=== PATIENT | female | born 1985 | race Caucasian/White ===

== ENCOUNTER 2016-07-20 16:15 | Emergency (ER) | payer OTHER ==
[~2016-07-20] VITALS: Ht 165.1 cm; Wt 71.5 kg
[2016-07-20 16:18] VITALS: BP 123/75; PULSE 107; RESP 16; TEMP 98.1; O2SAT 98
[2016-07-20] MEDS ORDERED: ONDANSETRON ODT 4 MG TAB PO ONE (16:45)
--- NOTE | 2016-07-20 17:36 | PD ---
HPI Chief Complaint: Abdominal Pain Time Seen by Provider: 16:31 Travel History International Travel<30 days: No Contact w/Intl Traveler<30days: No Traveled to known affect area: No History of Present Illness HPI 30-year-old female presents with multiple episodes of nonbloody emesis and diarrhea with intermittent abdominal cramping. Location is [place]. She states her symptoms all started this morning. She states her child had a recent cold. She denies other complaints. She states she feels worse when she moves around. She denies other modifying factors. She states she is having more diarrhea than vomiting. Duration is couple hours. PFSH Past Medical History Medical History: Denies Significant Hx Diminished Hearing: No Tetanus Vaccination: Unknown Influenza Vaccination: No ?: Not LMP: 07/01/16 Past Surgical History Other Surgery: Yes Social History Alcohol Use: No Tobacco Use: No Substance Use: No Allergies-Medications (Allergen,Severity, Reaction): Coded Allergies: No Known Allergies (Unverified , 07/20/16) Reported Meds & Prescriptions Reported Meds & Active Scripts Active Bentyl (Dicyclomine HCl) 10 Mg Cap 10 Mg PO TID PRN Zofran Odt (Ondansetron Odt) 4 Mg Tab 4 Mg SL Q6HR PRN Review of Systems Except as stated in HPI: all other systems reviewed are Neg Physical Exam Narrative GENERAL: Well-nourished, well-developed patient. SKIN: Warm and dry. HEAD: Normocephalic and atraumatic. EYES: No injection or drainage. ENT: No nasal drainage noted. NECK: Supple, trachea midline. CARDIOVASCULAR: Regular rate and rhythm RESPIRATORY: No increased effort. No accessory muscle use. GASTROINTESTINAL: Abdomen soft, mild periumbilical tenderness with deep palpation, nondistended. No rebound EXTREMITIES: No edema. BACK: Nontender without obvious deformity. NEUROLOGICAL: Awake and alert. Motor and sensory grossly within normal limits. Normal speech. Data Data Last Documented VS Vital Signs Date Time Temp Pulse Resp B/P Pulse Ox O2 Delivery O2 Flow Rate FiO2 07/20/16 16:31 16 07/20/16 16:18 98.1 107 123/75 98 Orders Ondansetron Odt (Zofran Odt) (07/20/16 16:45) Oral Rehydration (07/20/16 16:37) Ed Urine Pregnancytest Poc (07/20/16 16:38) Promethazine Inj (Phenergan Inj) (07/20/16 18:00) Dicyclomine (Bentyl) (07/20/16 19:15) MDM Medical Decision Making Medical Screen Exam Complete: Yes Emergency Medical Condition: Yes Medical Record Reviewed: Yes (past history confirmed) Differential Diagnosis Gastroenteritis, colitis, early appendicitis Narrative Course Patient with benign vitals and history of vomiting and diarrhea with intermittent central abdominal pain and otherwise young healthy female. We'll check point of care test and dose with Zofran and if can tolerate liquids, she is stable for discharge. She agrees if her symptoms worsen to return given early in course and is happy with this plan of care initially. patient states had an episode of emesis, will dose with Phenergan and reeval Patient states she is needing something for the pain will dose with Bentyl, she states she is now upset and wishes she would have gone to [facility]. I asked her if she has thrown up after the Phenergan and she states no. I told her I will see if she has improved after the pain medicine and make sure that she can tolerate liquids before discharge. when I went back to reassess patient she had elected to leave with prior discharge paperwork and prescriptions without reeval Diagnosis Primary Impression: Vomiting and diarrhea Additional Impression: Abdominal pain Qualified Code: R10.33 - Periumbilical abdominal pain Patient Instructions: General Instructions Additional Instructions: return as needed, follow with primary friday, zofran and bentyl as needed Med/Other Pt SpecificInfo: Prescription(s) given Scripts Dicyclomine (Bentyl)10 Mg Cap10 Mg PO TID PRN (PAIN SCALE 1 TO 10) #10 CAP Ref 0 Prov:Tete Marvin MD 07/20/16 Ondansetron Odt (Zofran Odt)4 Mg Tab4 Mg SL Q6HR PRN (Nausea/Vomiting) #10 TAB Prov:Tete Marvin MD 07/20/16 Disposition: 01 DISCHARGE HOME Condition: Stable Tete Marvin MD Jul 20, 2016 17:36 Tete Marvin MD Jul 20, 2016 17:36
[2016-07-20] MEDS ORDERED: ZOFR4TAB3 SL (17:57)
[2016-07-20] MEDS ORDERED: DICY10 PO (17:57)
[2016-07-20] MEDS ORDERED: PROMETHAZINE INJ 25 MG/ML VIAL IM ONE (18:00)
[2016-07-20] MEDS ORDERED: DICYCLOMINE HCL 10 MG CAP PO ONE (19:15)
== END 2016-07-20 20:19 | disposition home or self-care (01) ==
LOC: NEPA 16:15
DX: R19.7 Diarrhea, unspecified (principal); R10.9 Unspecified abdominal pain
CPT/HCPCS: 84703; 96372; 99283; J2550